=== PATIENT | male | born 1975 | race Caucasian/White ===

== ENCOUNTER 2018-04-29 06:59 | Outpatient (CLI) | payer OTHER ==
[2018-04-29 14:39] LABS: #Eosinphils 0.1 thou/uL (0.0-0.7); #Monocytes 0.5 thou/uL (0.11-0.59); #Neutrophils 3.3 thou/uL (1.40-6.50); %Basophils 0.7 % (0.0-1.0); %Lymphocytes 33.1 % (21.0-51.0); %Monocytes 7.8 % (0.0-10.0); %Neutrophils 56.4 % (42.0-75.0); Hemoglobin 14.6 g/dL (14.0-18.0); Mean Corpuscular HGB CONC 33.8 g/dL (32.0-36.0); Mean Corpuscular Hemoglobin 29.3 pg (27.0-31.0); Mean Corpuscular Volume 86.9 fL (78.0-98.0); Mean Platelet Volume 9.4 fL (7.4-10.4); Platelet Count 170 thou/uL (130-400); RBC Distribution Width 11.1 % (11.5-14.5); Red Blood Cell (RBC) Count 4.98 mill/uL (4.70-6.10); White Blood Cell (WBC) Count 5.9 thou/uL (4.8-10.8)
[2018-04-29 15:00] LABS: Anion Gap 13 mmol/L (10-20); BUN (Urea Nitrogen) 16 mg/dL (8.9-20.6); Calc. Creatinine Clearance 0 mL/min (70-130); Calcium 9.8 mg/dL (7.8-10.44); Carbon Dioxide 27 mmol/L (22-29); Chloride 102 mmol/L (98-107); Estimated GFR-MDRD 65; Glucose 98 mg/dL (70-105); Potassium 3.6 mmol/L (3.5-5.1); Sodium 138 mmol/L (136-145)
== END 2018-04-29 07:00 | disposition home or self-care (01) ==
LOC: LABBT 06:59
PROVIDERS: ATTEND Surgery
DX: Z01.812 Encounter for preprocedural laboratory examination (principal); K42.9 Umbilical hernia without obstruction or gangrene
CPT/HCPCS: 80048; 85025

== ENCOUNTER 2018-05-03 05:57 | Day surgery (SDC) | payer OTHER ==
[2018-04-29 13:28] VITALS: BMI 35.4
[2018-05-03] MEDS ORDERED: CEFAZOLIN 2 GM/50 ML BAG ONE (06:13)
[2018-05-03] MEDS ORDERED: Fentanyl 250 MCG/5 ML VIAL ONE (06:37)
[2018-05-03] MEDS ORDERED: Bupivacaine/Epinephrine 0.25% 30 ML VIAL ONE (06:50)
[2018-05-03] MEDS ORDERED: Promethazine HCl 25 MG/ML VIAL ONE (10:03)
[2018-05-03] MEDS ORDERED: HYDROcodone/Acetaminophen 5/325 mg Tablet ONE (10:48)
[2018-05-03] MEDS ORDERED: Rocuronium Bromide 10 MG/ML (10ML VIAL) ONE (16:28)
[2018-05-03] MEDS ORDERED: Lidocaine 1% PF 5 ML VIAL ONE (16:28)
[2018-05-03] MEDS ORDERED: Dexamethasone 20 MG/5 ML VIAL ONE (16:28)
[2018-05-03] MEDS ORDERED: Ondansetron PF 4 MG/2 ML Vial ONE (16:28)
[2018-05-03] MEDS ORDERED: Glycopyrrolate 0.2 MG/ML 5 ML SYRINGE ONE (16:28)
[2018-05-03] MEDS ORDERED: PROPOFOL 200 MG/20 ML VIAL ONE (16:28)
--- NOTE | 2018-05-03 18:03 | PDOC.OP ---
Operative Note - Operative Note Operative Note: PROCEDURE: Umbilical hernia repair with mesh. DATE OF PROCEDURE: SURGEON: Yanelis Ferrari M.D. PREOPERATIVE DIAGNOSES: Umbilical hernia POSTOPERATIVE DIAGNOSIS: Umbilical hernia HISTORY: Patient with symptomatic chronically incarcerated umbilical hernia for which operative repair with mesh is recommended. PROCEDURE IN DETAIL: After informed consent was obtained and appropriate preoperative antibiotics were administered the patient was taken to the operating room and placed in the supine position. General anesthesia was administered and the abdomen was prepped and draped in the standard sterile fashion. Local anesthesia was infused to the skin and subcutaneous tissue surrounding the umbilicus. A periumbilical incision was made and dissection carried down to the hernia sac which was dissected free of the overlying dermis and the surrounding subcutaneous tissues. The hernia was traced down to the fascia which was cleared circumferentially. The hernia contained preperitoneal fat only which was unable to be reduced through the small fascial defect. The base was ligated and divided and the preperitoneal fat discarded. The stump was dunked back into the abdominal cavity through the 1.5 cm defect and a preperitoneal space created for mesh placement. A 4.2 cm mesh was placed through the fascial defect and confirmed to be lying flat in the preperitoneal space. The fascial edges were then reapproximated with interrupted and figure-of -eight Ethibond sutures incorporating the central strap into the closure. The sutures were secured and the excess strap trimmed down to the level of the fascia. The subcutaneous tissues were reapproximated with 3-0 Monocryl suture and the skin was closed with 4-0 subcuticular Monocryl suture. Dermabond dressings were placed and once these were dry a cotton ball and Tegaderm dressing was placed. The patient was extubated and taken to the recovery room in good condition. There were no complications. There were no specimens. Estimated blood loss was minimal.
== END 2018-05-03 11:28 | disposition home or self-care (01) ==
LOC: SDC 05:57
PROVIDERS: ATTEND Surgery
PROC: 0WUF0JZ Supplement Abdominal Wall with Synthetic Substitute, Open Approach (ICD-10-PCS; principal; 2018-05-03)
DX: K42.0 Umbilical hernia with obstruction, without gangrene (principal)
CPT/HCPCS: 96374; J0131; J1100; J2001; J2405; J2550; J2704; J3010

== ENCOUNTER 2019-11-07 15:30 | Outpatient (CLI) | payer OTHER | END 2019-11-07 15:31 | disposition home or self-care (01) | LOC: SLEEPLAB 15:30 | PROVIDERS: ATTEND Internal Medicine Critical Care Medicine | DX: G47.33 Obstructive sleep apnea (adult) (pediatric) (principal) | CPT/HCPCS: 95806 ==